=== PATIENT | female | born 1960 | race Caucasian/White ===

== ENCOUNTER → 2016-02-11 | Outpatient (CLI) | payer BC ==
[2015-06-11 10:45] VITALS: BP 160/95
[~2016-02-11] MED LIST: CHOL500050 PO; DOCU-27 PO; FERR325T58 PO; HYDR-2678 PO; LEVO500T38 PO; OMEP20CA9 PO; PARO20TA55 PO
--- NOTE | 2016-02-11 11:07 | KCIC ---
PROCEDURE CT scan of the abdomen and pelvis without contrast 02/11/2016 HISTORY Left flank pain. Microscopic hematuria. TECHNIQUE After the oral administration contrast only, contiguous, 3 millimeter axial sections were obtained through the abdomen and pelvis. One or more of the following individualized dose reduction techniques were utilized for this study: 1. Automated exposure control. 2. Adjustment of the mA and/or kV according to patient size. 3. Use of iterative reconstruction technique. FINDINGS Images through the lung bases are within normal limits. The liver is borderline enlarged measuring 19 centimeters in length. The spleen, pancreas and adrenal glands are within normal limits. Patchy areas increased attenuation are seen involving both kidneys consistent with medullary nephrocalcinosis. A 1 millimeter nonobstructing calculus is seen involving the superior pole of the right kidney. A 2 millimeter nonobstructing calculus is seen involving the superior/mid pole of the right kidney. A 1.3 centimeter rounded low attenuation lesion is seen involving the superior pole of the right kidney. This likely represents a cyst. Two nonobstructing calculi are seen involving the lower pole of the left kidney. These measure 3 millimeters and 5 millimeters in size. No ureteral calculus is seen. There is no evidence of obstruction of either collecting system. Mild scattered atherosclerotic plaque formation is seen involving the abdominal aorta and its branches. The patient is status post gastric bypass procedure. Surgical clips surround the stomach. Surgical clips are seen within the gallbladder fossa consistent with a cholecystectomy. Air and stool is seen throughout the colon. The appendix is well-visualized is within normal limits. No free fluid or free air is seen within the abdomen. There is no evidence of bowel obstruction. Images through the pelvis demonstrate the urinary bladder to be contracted. No distal ureteral calculus is seen. Calcifications are seen within the pelvis consistent with phleboliths. The patient appears to be status post hysterectomy. No adnexal mass is seen. No free fluid is noted. Minimal S-shaped curvature of the thoracolumbar spine is seen. Degenerative changes are seen involving the lower lumbar spine and both hips. IMPRESSION Bilateral nonobstructing renal calculi. No acute abnormality is seen. Electronically signed by: Chacho Warren MD (Feb 11, 2016 11:06:32)
== END | disposition home or self-care (01) ==
LOC: KCIC CT 08:32
PROVIDERS: ATTEND Physician Assistant Surgical
DX: N20.0 Calculus of kidney (principal)
CPT/HCPCS: 74176

== ENCOUNTER 2016-02-17 10:16 | Emergency (ER) | payer BC ==
[~2016-02-17] VITALS: Ht 160 cm; Wt 47.6 kg
[2016-02-17] MEDS ORDERED: IV NORMAL SALINE 1000ML BAG 1,000 ML IV SCH (12:23)
[2016-02-17] MEDS ORDERED: ONDANSETRON PF 4 MG/2 ML VIAL. IV ONE (12:30)
[2016-02-17] MEDS ORDERED: FAMOTIDINE 20 MG/2 ML VIAL IVP ONE (12:30)
[2016-02-17 12:40] LABS: BILIRUBIN,URINE NEGATIVE (NEG); GLUCOSE,URINE NEGATIVE (NEG); NITRITE,URINE NEGATIVE (NEG); UROBILINOGEN,URINE 0.2 mg/dL (0.2 mg/dL)
[2016-02-17 12:42] LABS: BASO % 1 % (0-3); EOS % 2 % (0-3); HEMATOCRIT 32.3 % (36.0-47.0); HEMOGLOBIN 10.2 g/dL (12.0-15.5); LYMPH # 1.2 x10^3/uL (1.0-4.8); LYMPH % 17 % (24-48); MEAN CORPUSCULAR HEMOGLOBIN 25 pg (25-35); MEAN CORPUSCULAR HGB CONC 32 g/dL (31-37); MEAN CORPUSCULAR VOLUME 78 fL (79-100); MONO % 12 % (0-9); NEUT % 69 % (31-73); PLATELET COUNT 444 x10^3/uL (140-400); RED BLOOD COUNT 4.12 x10^6/uL (3.50-5.40); RED CELL DISTRIBUTION WIDTH 17.8 % (11.5-14.5); WHITE BLOOD COUNT 7.1 x10^3/uL (4.0-11.0)
[2016-02-17 12:54] LABS: CREATININE 0.7 mg/dL (0.6-1.0); GFR 86.9; POTASSIUM 3.6 mmol/L (3.5-5.1)
[2016-02-17 12:59] LABS: BACTERIA,URINE FEW /HPF (0-FEW); PROTEIN,URINE TRACE mg/dL (NEG-TRACE); RBC,URINE 0 /HPF (0-2); SQUAMOUS EPITHELIAL CELL,UR OCC /LPF
[2016-02-17 13:00] LABS: ALBUMIN 2.9 g/dL (3.4-5.0); ALBUMIN/GLOBULIN RATIO 0.6 (1.0-1.7); TOTAL BILIRUBIN 0.2 mg/dL (0.2-1.0); TOTAL PROTEIN 8.1 g/dL (6.4-8.2)
--- NOTE | 2016-02-17 13:21 | RAD ---
EXAM: Renal sonogram. HISTORY: Flank pain. TECHNIQUE: Sonographic imaging of the kidneys and bladder was performed. COMPARISON: CT dated 02/11/2016. FINDINGS: The right kidney measures 11.5 cm [id number] and the left kidney measures 10.9 cm [id number]-[id number]. There is no hydronephrosis. There is a 1.5 cm cyst within the right kidney. No solid renal lesion is seen. Incidental note is made of hepatic steatosis. The bladder is unremarkable. IMPRESSION: 1. 1.5 cm right renal cyst. Note is made that a hypodense lesion suggestive of a cyst within the left kidney on the recent CT is not seen sonographically and remains indeterminant in etiology. 2. No evidence of nephrolithiasis. This difficult, the recently demonstrated large stone within the lower pole the left kidney is not seen sonographically.
[2016-02-17 13:57] VITALS: BP 135/80
--- NOTE | 2016-02-17 14:00 | PHYS DOC ---
Past Medical History Past Medical History: Kidney Infection, Kidney Stone, UTI Additional Past Medical Histor: ULCERS Past Surgical History: , Hysterectomy Additional Past Surgical Histo: EMERITA-EN-Y GASTIC BYPASS, ULCER, BLADDER SLING Alcohol Use: Rarely Drug Use: None Adult General Chief Complaint Chief Complaint: ABNORMAL LABS HPI HPI Patient is a 55 year old female who presents with complaint of bilateral flank pain and abnormal lab tests. Patient states that she was instructed to come to the emergency department by her primary physician's office after she had lab work which showed a white count of 25,000. The patient states that she has recently been diagnosed with urinary tract infection and has been on 3 courses of antibiotics. Patient states that she is currently on Macrobid therapy. The patient states that overall she feels better today, however when she had her blood drawn she's noted that she had a fever of 103F. Patient also has history of bilateral kidney stones. Patient denies any evidence of ureteral stone based off of a previous CT that she had. Patient denies any sharp pain at this time but states that her flanks bilaterally are sore. Patient rates pain currently 6 out of 10. Review of Systems Review of Systems Constitutional: Intermittent fever [] Eyes: Denies change in visual acuity, redness, or eye pain [] HENT: Denies nasal congestion or sore throat [] Respiratory: Denies cough or shortness of breath [] Cardiovascular: Denies chest pain or edema [] GI: Denies abdominal pain, nausea, vomiting, bloody stools or diarrhea [] : Bilateral flank pain, dysuria [] Musculoskeletal: Denies back pain or joint pain [] Integument: Denies rash or skin lesions [] Neurologic: Denies headache, focal weakness or sensory changes [] Endocrine: Denies polyuria or polydipsia [] Current Medications Current Medications Current Medications Medications (Trade) Dose Ordered Sig/Melissa Start Time Stop Time Status Last Admin Dose Admin Famotidine (Pepcid) 20 mg 1X ONCE 02/17/16 12:30 02/17/16 12:31 DC 02/17/16 12:35 20 MG Ondansetron HCl (Zofran) 4 mg 1X ONCE 02/17/16 12:30 02/17/16 12:31 DC 02/17/16 12:35 4 MG Sodium Chloride (Iv Sodium Chloride 0.9% 1000ml Bag) 1,000 ml @ 1,000 mls/hr Q1H 02/17/16 12:23 02/17/16 13:22 DC 02/17/16 12:35 1,000 MLS/HR Allergies Allergies Allergies Coded Allergies Type Severity Reaction Last Updated Verified Penicillins Allergy Intermediate Rash 06/11/15 Yes Sulfa (Sulfonamide Antibiotics) Allergy Intermediate Rash 06/11/15 Yes Physical Exam Physical Exam Constitutional: Alert, afebrile, no acute distress. [] HENT: Normocephalic, atraumatic, bilateral external ears normal, oropharynx moist, no oral exudates, nose normal. [] Eyes: PERRLA, EOMI, conjunctiva normal, no discharge. [] Neck: Normal range of motion, no tenderness, supple, no stridor. [] Cardiovascular:Heart rate regular rhythm, no murmur [] Lungs & Thorax: Bilateral breath sounds clear to auscultation [] Abdomen: Bowel sounds normal, soft, no tenderness, no masses, no pulsatile masses. [] Skin: Warm, dry, no erythema, no rash. [] Back: No tenderness, no CVA tenderness. [] Extremities: No tenderness, no cyanosis, no clubbing, ROM intact, no edema. [] Neurologic: Alert and oriented X 3, normal motor function, normal sensory function, no focal deficits noted. [] Current Patient Data Vital Signs Vital Signs Date Time Temp Pulse Resp B/P Pulse Ox O2 Delivery O2 Flow Rate FiO2 02/17/16 13:57 76 135/80 95 Room Air 02/17/16 12:27 18 02/17/16 10:55 97.9 97.9 Lab Values Laboratory Tests Test 02/17/16 11:05 02/17/16 12:20 Urine Collection Type Void Urine Color Anjelica Urine Clarity Clear Urine pH 6.0 Urine Specific Sawyer 1.025 Urine Protein Tracemg/dL (NEG-TRACE) Urine Glucose (UA) Negativemg/dL (NEG) Urine Ketones (Stick) Negativemg/dL (NEG) Urine Blood Negative (NEG) Urine Nitrite Negative (NEG) Urine Bilirubin Negative (NEG) Urine Urobilinogen Dipstick 0.2mg/dL (0.2 mg/dL) Urine Leukocyte Esterase Small (NEG) Urine RBC 0/HPF (0-2) Urine WBC 11-20/HPF (0-4) Urine Squamous Epithelial Cells Occ/LPF Urine Bacteria Few/HPF (0-FEW) Urine Mucus Marked/LPF White Blood Count 7.1x10^3/uL (4.0-11.0) Red Blood Count 4.12x10^6/uL (3.50-5.40) Hemoglobin 10.2g/dL (12.0-15.5) L Hematocrit 32.3% (36.0-47.0) L Mean Corpuscular Volume 78fL (79-100) L Mean Corpuscular Hemoglobin 25pg (25-35) Mean Corpuscular Hemoglobin Concent 32g/dL (31-37) Red Cell Distribution Width 17.8% (11.5-14.5) H Platelet Count 444x10^3/uL (140-400) H Neutrophils (%) (Auto) 69% (31-73) Lymphocytes (%) (Auto) 17% (24-48) L Monocytes (%) (Auto) 12% (0-9) H Eosinophils (%) (Auto) 2% (0-3) Basophils (%) (Auto) 1% (0-3) Neutrophils # (Auto) 4.8x10^3uL (1.8-7.7) Lymphocytes # (Auto) 1.2x10^3/uL (1.0-4.8) Monocytes # (Auto) 0.9x10^3/uL (0.0-1.1) Eosinophils # (Auto) 0.1x10^3/uL (0.0-0.7) Basophils # (Auto) 0.0x10^3/uL (0.0-0.2) Sodium Level 139mmol/L (136-145) Potassium Level 3.6mmol/L (3.5-5.1) Chloride Level 102mmol/L (98-107) Carbon Dioxide Level 29mmol/L (21-32) Anion Gap 8 (6-14) Blood Urea Nitrogen 9mg/dL (7-20) Creatinine 0.7mg/dL (0.6-1.0) Estimated GFR (Cockcroft-Gault) 86.9 BUN/Creatinine Ratio 13 (6-20) Glucose Level 92mg/dL (70-99) Calcium Level 9.0mg/dL (8.5-10.1) Total Bilirubin 0.2mg/dL (0.2-1.0) Aspartate Amino Transferase (AST) 12U/L (15-37) L Alanine Aminotransferase (ALT) 11U/L (14-59) L Alkaline Phosphatase 95U/L (46-116) Total Protein 8.1g/dL (6.4-8.2) Albumin 2.9g/dL (3.4-5.0) L Albumin/Globulin Ratio 0.6 (1.0-1.7) L Lipase 124U/L (73-393) Laboratory Tests 02/17/16 12:20 Laboratory Tests 02/17/16 12:20 EKG EKG Not performed [] Radiology/Procedures Radiology/Procedures [facility] [address] [place] [address] IMAGING REPORT Signed PATIENT: DE FREEMAN ACCOUNT: [id number] : 1960 LOCATION: ER AGE: 55 SEX: F EXAM STATUS: REG ER ORD. PHYSICIAN: MICHELLE GIBSON MD REASON: bilateral flank pain, history kidney stones PROCEDURE: RENAL COMPLETE BILATERAL EXAM: Renal sonogram. HISTORY: Flank pain. TECHNIQUE: Sonographic imaging of the kidneys and bladder was performed. COMPARISON: CT dated 02/11/2016. FINDINGS: The right kidney measures 11.5 cm [id number]-[id number] and the left kidney measures 10.9 cm [id number]-ro-yfsu. There is no hydronephrosis. There is a 1.5 cm cyst within the right kidney. No solid renal lesion is seen. Incidental note is made of hepatic steatosis. The bladder is unremarkable. IMPRESSION: 1. 1.5 cm right renal cyst. Note is made that a hypodense lesion suggestive of a cyst within the left kidney on the recent CT is not seen sonographically and remains indeterminant in etiology. 2. No evidence of nephrolithiasis. This difficult, the recently demonstrated large stone within the lower pole the left kidney is not seen sonographically. DICTATED and SIGNED BY: ILENE REMY MD DATE: 02/17/16 1316 CC: MICHELLE GIBSON MD; HUGO WASHINGTON MD ~ [] Course & Med Decision Making Course & Med Decision Making Pertinent Labs and Imaging studies reviewed. (See chart for details) Based off the patient's lab work today, the patient's infection appears to be resolving as her white count is normal and her urine results show minimal signs of active infection at this time. I spoke with the patient's primary physician, Dr. Washington, and she agreed that patient would be appropriate for outpatient follow-up in the next 3-4 days. I also referred patient to Dr. Gambino for urology follow-up at the next available appointment. Advised patient to return emergency department for any worsening symptoms. Patient voiced understanding and in agreement with treatment plan. Dragon Disclaimer Dragon Disclaimer This electronic medical record was generated, in whole or in part, using a voice recognition dictation system. Departure Departure Impression: Primary Impression: Flank pain Disposition: 01 HOME, SELF-CARE Condition: IMPROVED Referrals: HUGO WASHINGTON MD (PCP) ERNESTO GAMBINO DO Patient Instructions: Flank Pain, Kidney Stones, Urinary Tract Infection Additional Instructions: Your lab work today showed that your urinary tract infection is improving on your current antibiotic regimen. I spoke with your physician, Dr. Washington, and she stated that she would like to have you follow in her office this week. We will also refer you to Dr. Gambino for follow-up at the next available appointment as discussed at today's visit. Please return to the emergency department for any worsening symptoms. MICHELLE GIBSON MD Feb 17, 2016 14:00
== END 2016-02-17 14:21 | disposition home or self-care (01) ==
LOC: ER 10:16
DX: R10.9 Unspecified abdominal pain (principal); R50.9 Fever, unspecified; Z87.440 Personal history of urinary (tract) infections; Z87.442 Personal history of urinary calculi; Z90.710 Acquired absence of both cervix and uterus; Z98.890 Other specified postprocedural states; Z88.0 Allergy status to penicillin; Z88.2 Allergy status to sulfonamides
CPT/HCPCS: 36415; 76770; 80053; 81001; 83690; 85027; 87040; 87086; 96361; 96374; 96375; 99285; J2405; J7030; S0028

== ENCOUNTER → 2017-11-03 | Outpatient (CLI) | payer BC ==
[~2017-11-03] MED LIST changes: +DOCU-109 PO; -DOCU-27 PO; -LEVO500T38 PO; +LEVO500T59 PO; -PARO20TA55 PO; +PARO20TA99 PO
--- NOTE | 2017-11-03 11:58 | KCIC ---
Bone densitometry 11/03/2017 11:00 AM Indication: Screening exam history of methotrexate use. Comparison Study: None available. Discussion: Bone Densitometry was performed with dual photon absorption of the lumbar spine and proximal left femur. Lumbar Spine: Bone average density is 0.726g/cm2 for L1-L4. T-Score is -2.9. Proximal left femur: Bone average density is 0.683g/cm2. T-Score is -2.1. IMPRESSION: Osteoporosis, based on bone mineral density of the lumbar spine. Left proximal femur measures within the osteopenic range. Fracture risk is considered high. Note: Definitions established by the World Health Organization: Normal: T-score is -1.0 or above. Osteopenia: T-score is between -1.0 and -2.5. Osteoporosis: T-score is -2.5 or below. Electronically signed by: Tristan Landry MD (11/03/2017 11:54 AM) [id number]
--- NOTE | 2017-11-03 17:25 | KCIC ---
Bilateral digital screening mammograms: Reason for examination: Routine screening. Comparison is made to previous study dated 02/18/2009. Interpretation was made with the benefit of CAD. The skin and nipples show no abnormalities. No abnormal axillary lymph nodes are seen. The breast parenchyma is heterogeneously dense. (Breast density: Category C.) There are no dominant masses, suspicious calcifications or architectural distortion. A few benign appearing calcifications are present. Impression: No evidence of malignancy. Recommend routine screening. Your patient's mammogram demonstrates that she has dense breast tissue (breast density category C or D), which could hide abnormalities, and if she has other risk factors for breast cancer that have been identified, she might benefit from supplemental screening tests that may be suggested by you as her ordering physician. Dense breast tissue, in and of itself, is a relatively common condition. Therefore, this information is not provided to cause undue concern, but rather to raise your awareness and to promote discussion with your patient regarding the presence of other risk factors, in addition to dense breast tissue. Your patient's mammography results will be sent to her. BI-RAD Category 2: Benign. "Our facility is accredited by the [employer] Mammography Program." This patient's information has been entered into a reminder system for the patient to be notified with the results of her examination and a target date for the next mammogram. Electronically signed by: Roseanne Hu MD (11/03/2017 5:22 PM) [id number]
== END | disposition home or self-care (01) ==
LOC: KCIC DEXA 10:37
PROVIDERS: ATTEND Physician Assistant Surgical
DX: Z12.31 Encounter for screening mammogram for malignant neoplasm of breast (principal); Z13.820 Encounter for screening for osteoporosis; M81.8 Other osteoporosis without current pathological fracture; Z90.710 Acquired absence of both cervix and uterus; Z79.899 Other long term (current) drug therapy
CPT/HCPCS: 77067; 77080

== ENCOUNTER 2018-08-15 11:27 | Day surgery (SDC) | payer BC ==
[~2018-08-15] VITALS: Ht 160 cm; Wt 52.0 kg
[~2018-08-15 11:27] MED LIST changes: +DEXAMETHASONE SOD PHOS 4 MG/ML VIAL ONE; +HYDROmorphone 2 MG/ML VIAL IV PRN; +IV RINGERS,LACTATED 1000ML 1,000 ML IV SCH; +LACT1CAP19 PO; +LIDOCAINE 1% PF 2 ML VIAL. ID PRN; +LIDOCAINE 2% PF 5 ML VIAL. ONE; +MORPHINE SULFATE 2 MG/ML VIAL. IV PRN; +OMEP20CA10 PO; -OMEP20CA9 PO; +ONDANSETRON PF 4 MG/2 ML VIAL. IV PRN; +ONDANSETRON PF 4 MG/2 ML VIAL. ONE; +PROCHLORPERAZINE 10 MG/2 ML VIAL. IV PRN; +PROPOFOL 20 ML IV ONE; +TAMS0.4C97 PO; +fentaNYL PF VIAL 100 MCG/2 ML VIAL IV PRN
[2018-08-15] MEDS ORDERED: fentaNYL PF VIAL 100 MCG/2 ML VIAL ONE (11:44)
[2018-08-15] MEDS ORDERED: IOHEXOL 300 MG/ML 50 ML VIAL. ONE (11:46)
[2018-08-15] MEDS ORDERED: FUROSEMIDE 20 MG/2 ML VIAL. ONE (12:49)
[2018-08-15] MEDS ORDERED: ePHEDrine PF IN SALINE 50 MG/10 ML SYRINGE. IV ONE (13:31)
[2018-08-15] MEDS ORDERED: PHENYLEPHRINE in 0.9% NACL PF 1 MG/10 ML SYRINGE. IV ONE (13:48)
[2018-08-15] MEDS ORDERED: KETOROLAC 30 MG/ML INJ FOR OR. INJ ONE (14:00)
--- NOTE | 2018-08-15 14:09 | PDOC4 ---
OPERATIVE NOTE Date: Date: Aug 02, 2018 Pre-Op Diagnosis: L Ureteral Calculus Post-Op Diagnosis: same Procedure Performed: cysto, removal L ureeral stent, L RPG, L ureteroscopy with stone removal, stent placement (6 x24 w string) Surgeon: Bry Anesthesia Type: gen Blood Loss: min Specimans Obtained: stone Findings: L ureteral stone in mid ureter Complications: none Operative Note: with pt in lithotomy pos'n, abx were admin'd, the pt was prepped and draped in usual fashion Cysto was performed w 21- Fr scope. The end of L ureteral stent was grasped and removed. L RPG was then performed demonstrating a filling defect in mid L ureter. A gudewire was placed and the Ureteroscope was then used to examine the L ureter. A stone was identified and began to migrate proximally. The water flow was stopped thru the scope and the patient was given Lasix IV> The ureter proximal was then examined and a medium sized stone was identified. The Tricep grasper was then used to carefully grasp and remove the stone. The ureter was then re- examined and there were no additional stones from the bladder to the renal pelvis. The ureteroscope was removed and the cystoscope was placed after back-threding the wire through the cysto port. The 6 x 24 cm Polaris stent was the placed over the wire under fluoroscopic control When it was in the renal pelvis, the wire was removed, allowing the stent to coil in goo pos'n. The distal limb coiled in the bladder. The scope was removed after emptying the bladder. The dangle string was taped t the patient's lower abdomen in usual fashion. The pt rec'd Tordol and Zofran before being awakened and transferred to RR. Disp: home after RR. Ret to Office in 3 days for stent removal. Rx for Lortab. MARITZA HELTON MD Aug 15, 2018 14:09
[2018-08-15] MEDS: fentaNYL PF VIAL 100 MCG/2 ML VIAL IV PRN ×2 (14:27→14:59)
[2018-08-15] MEDS ORDERED: HYDROcodone/APAP 5/325MG 1 TAB TABLET PO ONE ×2 (14:45)
[2018-08-15 15:10] VITALS: BP 114/53
--- NOTE | 2018-08-17 09:08 | PATHOLOGY ---
[facility] Accession Number: [id number] . 01 Material submitted: . kidney - KIDNEY STONE . 01 Clinical history: . Stone analysis . 02 Diagnosis: Calculi, kidney, removal: - Calculi/nephrolithiasis (gross diagnosis only). - Specimen forwarded for stone analysis, results to be reported in an addendum when available. [facility]/08/17/2018 . 02 Electronically signed: . Rey Rey MD, Pathologist NPI- [id number] . 01 Gross description: . Received fresh, labeled "Kathy, Dana, kidney stone", is an irregular, dark brown calculus measuring 0.3 x 0.2 x 0.1 cm. Gross only. ([facility]; 08/16/2018) [facility] . 02 Pathologist provided ICD-10: N20.0 . 02 CPT . 866408 Specimen Comment: A courtesy copy of this report has been sent to Specimen Comment: [phone], . Specimen Comment: Report sent to / DR CAMARILLO Specimen Comment: A duplicate report has been generated due to demographic updates. Performed at: 01 [facility] [address] [facility] [address], [place] [id number] MD Rufino Ramirez MD Phone: [phone] Performed at: 02 [facility] [address] [place], [place] [id number] MD Evens Romano MD Phone: [phone]
== END 2018-08-15 15:30 | disposition home or self-care (01) ==
LOC: SURG 11:27
PROVIDERS: ATTEND Urology
DX: N20.1 Calculus of ureter (principal); F17.210 Nicotine dependence, cigarettes, uncomplicated; Z88.1 Allergy status to other antibiotic agents; Z90.710 Acquired absence of both cervix and uterus; Z87.442 Personal history of urinary calculi
CPT/HCPCS: 52332; 52352; 74420; 82365; 88300; A7015; C1769; C2617; J0171; J0690; J0780; J1100; J1885; J1940; J2001; J2370; J2405; J2704; J3010; Q9967

== ENCOUNTER → 2018-09-12 | Outpatient (CLI) | payer BC ==
[2018-08-15 15:10] VITALS: BP 114/53
[~2018-09-12] MED LIST changes: -DEXAMETHASONE SOD PHOS 4 MG/ML VIAL ONE; -HYDROmorphone 2 MG/ML VIAL IV PRN; -IV RINGERS,LACTATED 1000ML 1,000 ML IV SCH; -LIDOCAINE 1% PF 2 ML VIAL. ID PRN; -LIDOCAINE 2% PF 5 ML VIAL. ONE; -MORPHINE SULFATE 2 MG/ML VIAL. IV PRN; -ONDANSETRON PF 4 MG/2 ML VIAL. IV PRN; -ONDANSETRON PF 4 MG/2 ML VIAL. ONE; -PROCHLORPERAZINE 10 MG/2 ML VIAL. IV PRN; -PROPOFOL 20 ML IV ONE; -fentaNYL PF VIAL 100 MCG/2 ML VIAL IV PRN
--- NOTE | 2018-09-12 12:00 | RAD ---
EXAM: Abdomen, single view. HISTORY: Left ureterolithiasis. COMPARISON: 08/03/2018 FINDINGS: A frontal view of the abdomen is obtained. Evaluation is limited due to bowel. There has been removal of a left nephroureteral stent. The previously suspected left ureteral and renal stones are not seen. There is a small left pelvic phlebolith. There are cholecystectomy clips. There are surgical anastomoses within the left greater the right upper abdomen. IMPRESSION: 1. No convincing nephroureterolithiasis, with evaluation limited due to overlying bowel. 2. Nonobstructive bowel gas pattern. Electronically signed by: Flor Oglesby MD (09/12/2018 11:57 AM) [id number]
== END | disposition home or self-care (01) ==
LOC: RAD 09:24
PROVIDERS: ATTEND Urology
DX: N20.1 Calculus of ureter (principal)
CPT/HCPCS: 74018